=== PATIENT | female | born 2000 | race African-American/Black ===

== ENCOUNTER 2019-05-11 09:55 | Emergency (ER) | payer OTHER ==
[~2019-05-11] VITALS: Ht 162.6 cm; Wt 100.0 kg
[2019-05-11] MEDS ORDERED: IBUPROFEN 600MG TABLET PO ONE (11:00)
[2019-05-11] MEDS ORDERED: CLINDAMYCIN HCL 150MG CAPSULE PO ONE (11:00)
[2019-05-11 11:07] VITALS: BP 131/33
== END 2019-05-11 11:24 | disposition home or self-care (01) ==
LOC: ER 10:36
DX: K12.2 Cellulitis and abscess of mouth (principal); K04.7 Periapical abscess without sinus
CPT/HCPCS: 99283

== ENCOUNTER 2019-09-23 17:43 | Emergency (ER) | payer SELFPAY ==
[~2019-09-23] VITALS: Ht 162.6 cm; Wt 120.0 kg
[2019-09-23 18:58] VITALS: BP 120/68
== END 2019-09-23 19:02 | disposition home or self-care (01) ==
LOC: ER 17:43
DX: J06.9 Acute upper respiratory infection, unspecified (principal); J02.9 Acute pharyngitis, unspecified
CPT/HCPCS: 99282